=== PATIENT | female | born 1980 | race Caucasian/White ===

== ENCOUNTER 2019-04-02 23:58 | Emergency (ER) | payer MEDICAID, OTHER ==
[~2019-04-02] VITALS: Ht 154.9 cm; Wt 61.2 kg
[2019-04-03 00:04] VITALS: BP 124/88
--- NOTE | 2019-04-03 00:15 | NUR ---
PT AMBULATED TO BED #10
--- NOTE | 2019-04-03 00:20 | NUR ---
38/F PRESENTED TO ED WITH C/O WASHBURN WITH NAUSEA X1 DAY. PAIN 3/10 AT THIS TIME. PT SEES "SPOTS" INTERMINTENT. NO OTHER VISUAL CHANGES. HX-DM RX METFORMIN (NONCOMPLIANT) NKA
[2019-04-03] MEDS ORDERED: NACL 0.9% 1,000 ML IV ONE ×2 (00:46→02:20)
[2019-04-03] MEDS ORDERED: KETOROLAC 30 MG/ML VIAL IVP ONE (00:50)
[2019-04-03] MEDS ORDERED: ONDANSETRON 4 MG/2 ML VIAL IVP ONE (00:50)
--- NOTE | 2019-04-03 00:51 | NUR ---
LABS TAKEN BEDSIDE
[2019-04-03 01:12] LABS: APPEARANCE,URINE CLEAR (CLEAR); BILIRUBIN,URINE NEGATIVE (NEGATIVE); BLOOD, URINE NEGATIVE (NEGATIVE); COLOR,URINE YELLOW (YELLOW); LEUKOCYTE ESTERASE ,URINE NEGATIVE (NEGATIVE); NITRITE, URINE NEGATIVE (NEGATIVE); UGLUCOSE 3+ (NEGATIVE)
[2019-04-03 01:16] LABS: BASOPHILS % (AUTO) 0.4 % (0.0-2.0); EOSINOPHILS # (AUTO) 0.1 K/uL (0-0.4); EOSINOPHILS % (AUTO) 1.7 % (0.0-4.0); HEMOGLOBIN 14.7 g/dL (12.0-16.0); LYMPHOCYTES # (AUTO) 2.4 K/uL (2.5-16.5); LYMPHOCYTES % (AUTO) 41.2 % (20.5-51.1); MEAN CORPUSCULAR HEMOGLOBIN 31 pg (27-31); MEAN CORPUSCULAR HGB CONC 33 g/dL (33-37); MEAN CORPUSCULAR VOLUME 92.5 fL (80-94); MONOCYTES # (AUTO) 0.4 K/uL (0.8-1.0); MONOCYTES % (AUTO) 6.9 % (1.7-9.3); NEUTROPHILS # (AUTO) 2.9 K/uL (1.8-7.7); NEUTROPHILS % (AUTO) 49.8 % (42.2-75.2); PLATELET COUNT (AUTO) 188 K/uL (140-450); RED BLOOD CELL COUNT(AUTO) 4.76 MIL/uL (4.20-5.40); RED CELL DISTRIBUTION WIDTH 12.5 % (11.6-13.7); WHITE BLOOD COUNT (AUTO) 5.9 K/uL (4.8-10.8)
[2019-04-03 01:25] LABS: ALBUMIN 3.6 g/dL (3.4-5.0); ANION GAP 12.4 (8-16); CARBON DIOXIDE 29.7 mmol/L (21-32); CREATININE 1.2 mg/dL (0.6-1.3); POTASSIUM 4.1 mmol/L (3.5-5.1); TOTAL BILIRUBIN 0.4 mg/dL (0.0-1.0)
[2019-04-03 01:27] LABS: RBC,URINE 0-5 /HPF (0-5); WBC,URINE 0-5 /HPF (0-5)
[2019-04-03] MEDS ORDERED: fentaNYL 0.05 MG/ML VIAL IVP ONE (02:20)
--- NOTE | 2019-04-03 02:30 | NUR ---
PT SLEEPING IN BED. NO SIGNS OF DISTRESS NOTED. WILL CONTINUE TO MONITOR.
[2019-04-03 03:45] VITALS: BP 108/67
--- NOTE | 2019-04-03 03:45 | NUR ---
Patient discharged with v/s stable. Written and verbal after care instructions given and explained. Patient alert, oriented and verbalized understanding of instructions. Ambulatory with steady gait. All questions addressed prior to discharge. ID band removed. Patient advised to follow up with PMD. Rx of METFORMIN, BENTYL, ZOFRAN given. Patient educated on indication of medication including possible reaction and side effects. Opportunity to ask questions provided and answered.
== END 2019-04-03 03:45 | disposition home or self-care (01) ==
LOC: MED 23:58
DX: E11.65 Type 2 diabetes mellitus with hyperglycemia (principal); B34.9 Viral infection, unspecified; R19.7 Diarrhea, unspecified; Z90.49 Acquired absence of other specified parts of digestive tract
CPT/HCPCS: 36415; 80053; 81001; 81025; 82948; 83690; 85025; 96361; 96374; 96375; 99283; J1885; J2405; J3010; J7030

== ENCOUNTER 2019-07-09 05:05 | Emergency (ER) | payer OTHER ==
[~2019-07-09] VITALS: Ht 152.4 cm; Wt 56.7 kg
[2019-07-09 05:16] VITALS: BP 114/73
--- NOTE | 2019-07-09 05:16 | NUR ---
PT BIB W/C TO ER BED 7. DR SEARS BEDSIDE
--- NOTE | 2019-07-09 05:20 | NUR ---
PT ASSESSMENT COMPLETE. PT SEATED UPRIGHT IN BED. BEDRAI X1UP. WILL CONTIUE TO MONITOR.
[2019-07-09] MEDS ORDERED: IBUPROFEN 600 MG TAB PO ONE (05:25)
--- NOTE | 2019-07-09 05:52 | NUR ---
PT AMBULATED TO RESTROOM, STEADY GAIT OBSERVED
--- NOTE | 2019-07-09 06:10 | NUR ---
PT TAKEN TO CT VIA W/C
--- NOTE | 2019-07-09 07:00 | NUR ---
IVAN WRAP PLACED ON PT L KNEE. +CSM
--- NOTE | 2019-07-09 07:01 | NUR ---
PT GIVEN INSTRUCTION ON PROPER USE OF CRUTCHES. CRUTCHES FITTED TO PT HEIGHT AND ARM LENGTH. PT GIVEN INSTRUCTION ON USE OF CRUTCHES, INCLUDING SITTING TO STANDING AND VICE VERSA, ASCENDING/ DESCENDING STAIRS, AND WALKING. PT DEMONSTRATED SAFE USE FOR APPROXIMATELY 40 FEET. PT STATED SHE FELT COMFORTABLE WITH USE.
--- NOTE | 2019-07-09 07:02 | NUR ---
EMT AT BEDSIDE FOR CRUTCHES TRAINING. PT RETURNS DEMONSTRATION, NO FURTHER TEACHING AT THIS TIME.
[2019-07-09] MEDS ORDERED: MORPHINE SULFATE 4 MG/ML SYR IM ONE (07:10)
--- NOTE | 2019-07-09 07:15 | NUR ---
BEDSIDE REPORT GIVEN TO PHAN MOFFETT. TRANSFER OF CARE AT THIS TIME.
[2019-07-09 07:32] VITALS: BP 114/73
--- NOTE | 2019-07-09 07:32 | NUR ---
Note venita in EDM - 07/09/19 at 0732 by BRENDA Patient discharged with v/s stable. Written and verbal after care instructions given and explained. Patient alert, oriented and verbalized understanding of instructions. Ambulatory with steady gait. All questions addressed prior to discharge. ID band removed. Patient advised to follow up with PMD. Rx of NAPROXEN given. Patient educated on indication of medication including possible reaction and side effects. Opportunity to ask questions provided and answered.
--- NOTE | 2019-07-09 07:32 | NUR ---
Patient discharged with v/s stable. Written and verbal after care instructions given and explained BY DR SEARS. Patient alert, oriented and verbalized understanding of instructions. Ambulatory with steady gait. All questions addressed prior to discharge. ID band removed. Patient advised to follow up with PMD. Rx of NAPROXEN given. Patient educated on indication of medication including possible reaction and side effects. Opportunity to ask questions provided and answered.
== END 2019-07-09 07:32 | disposition home or self-care (01) ==
LOC: MED 05:05
DX: M79.605 Pain in left leg (principal); E11.9 Type 2 diabetes mellitus without complications; M54.5 Low back pain; W19.XXXA Unspecified fall, initial encounter; Y93.89 Activity, other specified; Y92.89 Other specified places as the place of occurrence of the external cause; Y99.8 Other external cause status
CPT/HCPCS: 72110; 73590; 73630; 81025; 96372; 99283; J2270

== ENCOUNTER 2019-08-18 23:20 | Emergency (ER) | payer OTHER ==
[~2019-08-18] VITALS: Ht 152.4 cm; Wt 61.2 kg
[2019-08-18 23:30] VITALS: BP 116/74
--- NOTE | 2019-08-18 23:30 | NUR ---
TO BED # 02 AMBULATORY
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
--- NOTE | 2019-08-19 00:36 | NUR ---
PT RESTING IN BED EYES CLOSED. RESPIRATIONS ARE EVEN AND UNLABORED. SKIN IS WARM AND DRY TO TOUCH. PT AAO X4 AND RESPONDS TO VERBAL STIMULI. AT BEDSIDE.
--- NOTE | 2019-08-19 01:25 | NUR ---
DR. SAAB AT BEDSIDE.
[2019-08-19] MEDS ORDERED: NACL 0.9% 1,000 ML IV ONE (01:40)
[2019-08-19] MEDS ORDERED: KETOROLAC 30 MG/ML VIAL IVP ONE (01:40)
[2019-08-19] MEDS ORDERED: METOCLOPRAMIDE 10 MG/2 ML INJ VIAL IVP ONE (01:40)
--- NOTE | 2019-08-19 02:05 | NUR ---
IV STARTED IN L AC 20 G. IV SITE IS PATENT. NO SWELLING, OR C/O PAIN. IVF STARTED- NS 0.9% 1L BOLUS. REGLAN 10MG IVP, AND TORADOL 30 MG IVP GIVEN FOR C/O WASHBURN AND NAUSEA.
--- NOTE | 2019-08-19 03:00 | NUR ---
PT STATES SHE NO LONGER HAS PAIN IN HEAD. PT STATES HER NAUSEA HAS REDUCED. PT HAS NOT HAD EPISODE OF VOMITING. IV SITE IS PATENT. NO REDNESS, SWELLING, OR C/O PAIN AT THAT SIGHT.
[2019-08-19 03:25] VITALS: BP 118/64
--- NOTE | 2019-08-19 03:25 | NUR ---
Patient discharged with v/s stable. Written and verbal after care instructions given and explained. Patient alert, oriented and verbalized understanding of instructions. Ambulatory with steady gait. All questions addressed prior to discharge. ID band removed. Patient advised to follow up with PMD. Rx of EXCEDRINE MIGRAINE given. Patient educated on indication of medication including possible reaction and side effects. Opportunity to ask questions provided and answered.
== END 2019-08-19 03:25 | disposition home or self-care (01) ==
LOC: MED 23:20
DX: S06.9X0A Unspecified intracranial injury without loss of consciousness, initial encounter (principal); E11.9 Type 2 diabetes mellitus without complications; W22.8XXA Striking against or struck by other objects, initial encounter; Y93.89 Activity, other specified; Y92.89 Other specified places as the place of occurrence of the external cause; Y99.8 Other external cause status
CPT/HCPCS: 82948; 96374; 96375; 99284; J1885; J2765; J7030